=== PATIENT | female | born 1955 | race Caucasian/White ===

== ENCOUNTER 2016-09-06 20:04 | Observation (INO) | payer MEDICAID ==
[2016-09-06 20:06] VITALS: BMI 26.9
--- NOTE | 2016-09-06 20:58 | ED PDOC ---
Arrival/HPI - General Chief Complaint: Headache Time Seen by Provider: 09/06/16 20:25 Historian: Patient - History of Present Illness Narrative History of Present Illness (Text): 09/06/16 20:45 Patient is a 61 year old female whose past medical history includes hypertension and hypercholesterolemia presents to the emergency department with cough, left sided chest pain for past three days. Cough worse with exertion. She also reports left sided headache with photophobia. States she has pain in her left neck as well worse with movement. No known trauma. No fevers. No facial swelling. No pain with eye movements. PMD: Dr. Michael Munguia ([place]) 09/06/16 23:15 Time/Duration: < week Symptom Onset: Gradual Symptom Course: Unchanged Modifying Factors (Text): None Past Medical History - Provider Review Nursing Documentation Reviewed: Yes - Infectious Disease Hx of Infectious Diseases: None - Tetanus Immunization Tetanus Immunization: Unknown - Reproductive Menopause: Yes - Cardiac Hx Cardiac Disorders: Yes Hx Hypertension: Yes - Pulmonary Hx Respiratory Disorders: No Hx Asthma: No Hx Bronchitis: No Hx Chronic Obstructive Pulmonary Disease (COPD): No Hx Emphysema: No Hx Pneumonia: No Hx Respiratory Aspiration: No Hx Respiratory Tract Infection: No Hx Sleep Apnea: No Hx Tuberculosis: No - Neurological Hx Neurological Disorder: No Hx Alzheimer's Disease: No HX Cerebrovascular Accident: No Hx Dementia: No Hx Dizziness: No Hx Meningitis: No Hx Migraine: No Hx Parkinson's Disease: No Hx Seizures: No Hx Transient Ischemic Attacks (TIA): No - HEENT Hx HEENT Disorder: Yes (wears glasses) Hx Blind: No Hx Cataracts: No Hx Deafness: No Hx Difficulty Chewing: No Hx Epistaxis: No Hx Glaucoma: No Hx Macular Degeneration: No - Renal Hx Renal Disorder: No Hx Dialysis: No Hx Kidney Stones: No Hx Neurogenic Bladder: No Hx Pyelonephritis: No Hx Renal Cancer: No Hx Renal Failure: No - Endocrine/Metabolic Hx Endocrine Disorders: No Hx Adrenal Cancer: No Hx Diabetes Insipidus: No Hx Diabetes Mellitus Type 1: No Hx Diabetes Mellitus Type 2: No Hx Hyperthyroidism: No Hx Hypothyroidism: No Hx Systemic Lupus Erythematosus: No - Hematological/Oncological Hx Blood Disorders: No Hx AIDS: No Hx Anemia: No Hx Cancer: No Hx Chemotherapy: No Hx Cirrhosis: No Hx Hemophilia: No Hx Hepatitis A: No Hx Hepatitis B: No Hx Hepatitis C: No Hx Metastasis: No Hx Shingles: No Hx Sickle Cell Disease: No Hx Unexplained Bleeding: No - Integumentary Hx Dermatological Disorder: No Hx Basal Cell Carcinoma: No Hx Eczema: No Hx Melanoma: No Hx Psoriasis: No Hx Squamous Cell Carcinoma: No - Musculoskeletal/Rheumatological Hx Arthritis: Yes Hx Back Pain: Yes - Gastrointestinal Hx Gastroesophageal Reflux: Yes - Genitourinary/Gynecological Hx Genitourinary Disorders: No Hx Hematuria: No Hx Incontinence: No Hx Prostate Problems: No Hx Sexually Transmitted Diseases: No Hx Urinary Tract Infection: No - Psychiatric Hx Psychophysiologic Disorder: No Hx Anxiety: No Hx Bipolar Disorder: No Hx Depression: No Hx Emotional Abuse: No Hx Hallucinations: No Hx Panic Disorder: No Hx Post Traumatic Stress Disorder: No Hx Psychosis: No Hx Physical Abuse: No Hx Schizophrenia: No Hx Sexual Abuse: No Hx Substance Use: No - Surgical History Hx Orthopedic Surgery: Yes (benign tumor removed from back and growth removed from foot.) Other/Comment: R foot surgery - Anesthesia Hx Anesthesia: Yes Hx Anesthesia Reactions: No Hx Malignant Hyperthermia: No - Suicidal Assessment Feels Threatened In Home Enviroment: No Family/Social History - Physician Review Nursing Documentation Reviewed: Yes Family/Social History: Unknown Family HX Smoking Status: Never Smoked Hx Alcohol Use: No Hx Substance Use: No Allergies/Home Meds Allergies/Adverse Reactions: Allergies No Known Allergies Allergy (Verified 09/06/16 20:06) Home Medications: Home Meds Medication Instructions Recorded Confirmed Amlodipine Besylate 10 mg PO DAILY 07/17/13 09/06/16 Aspirin 81 mg PO DAILY 07/17/13 09/06/16 Pantoprazole [Protonix EC Tab] 40 mg PO DAILY 07/17/13 09/06/16 Simvastatin 80 mg PO DAILY 07/17/13 09/06/16 Leflunomide [Arava] 20 mg PO DAILY 12/05/14 09/06/16 Review of Systems - Review of Systems Systems not reviewed;Unavailable: Language Barrier (membership correspondent present) Constitutional: Fevers (Subjective) Eyes: absent: Vision Changes ENT: Sore Throat, Sinus Congestion. absent: Voice Changes, Epistaxis Respiratory: Cough. absent: SOB Cardiovascular: Chest Pain, [place] Gastrointestinal: absent: Abdominal Pain, Nausea, Vomiting Genitourinary Female: absent: Dysuria Musculoskeletal: Back Pain, Neck Pain Skin: absent: Rash Neurological: Headache. absent: Dizziness Endocrine: absent: Diaphoresis Psychiatric: absent: Depression Physical Exam - Physical Exam Narrative Physical Exam (Text): Head: Atraumatic. Normocephalic. No facial droop. No facial edema. Eyes: PERRL. EOMI. Conjunctivae are not pale. No pain with eye movements. ENT: Mucous membranes are moist and intact. Oropharynx is clear and symmetric. No facial edema or erythema. Neck: Supple. Significant midline cervical spine tenderness with left sided muscle spasm. No JVD. No lymphadenopathy. Cardiovascular: Regular rate. Regular rhythm. No murmurs, rubs, or gallops. Distal pulses are 2+ and symmetric. Pulmonary/Chest: No evidence of respiratory distress. Clear to auscultation bilaterally. No wheezing, rales or rhonchi. Abdominal: Soft and non-distended. There is no tenderness. No rebound, guarding, or rigidity. No organomegaly. Good bowel sounds. Back: No CVA tenderness. Extremities: No edema. No cyanosis. No clubbing. Full range of motion in all extremities. No calf tenderness. Skin: Skin is warm and dry. No petechiae. No purpura. Neurological: Alert, awake, and oriented to person, place, time, and situation. Normal speech. Psychiatric: Good eye contact. Normal interaction, affect, and behavior. 09/06/16 23:20 Vital Signs Reviewed: Yes Vital Signs Temp Pulse Resp BP Pulse Ox 09/06/16 22:20 98.1 F 59 L 18 166/96 H 97 09/06/16 20:09 98.2 F 70 18 138/80 98 Temperature: Afebrile Blood Pressure: Normal Pulse: Regular Respiratory Rate: Normal Appearance: Positive for: Non-Toxic, Uncomfortable Pain Distress: Moderate Mental Status: Positive for: Alert and Oriented X 3 Medical Decision Making ED Course and Treatment: Differential Diagnosis included but are not limited to: Torticollis vs cervical radiculopathy vs sinusitis vs. cad Plan: Will obtain CT's of the head and neck, Chest X-ray, and check labs. Progress Notes: Patient with vague chest pain, cannot exclude cad, initial ekg sinus bradycardia , first troponin unremarkable. Patient on exam with palpable neck spasm without fever or trauma. She reports cough and congestion. There is pain with ROM of left shoulder worse with movements. There is localized severe paraspinal tenderness noted. No erythema or edema. Lungs clear. tire setter present. CXR unremarkable. On exam, patient without facial edema, no facial rash, no pain with eye movements, no orbital tenderness. No facial droop. Cranial nerves intact. Suspect radiculoapthy/torticollis. Plan ct head and neck, reassess. Chest pain persistent. Headache and neck pain improved. I reviewed prior imaging studies including brain MRI, prior imaging studies. I feel current headache ? related to neck spasm, cannot exclude migraine or uri component. Will admit to telemetry observation for chest pain with associated risk factors. Also serial exams for intractable headache. Currently afebrile with no focal weakness noted. Last stress test reportedly one year ago. Patient updated with treatment plan, case d/w house doctor accepts admission to hospitalist. 09/06/16 23:24 - Lab Interpretations Lab Results: 09/06/16 21:00 09/06/16 21:00 Lab Results 09/06/16 21:00: Sodium 139, Potassium 3.7, Chloride 104, Carbon Dioxide 26, Anion Gap 13, BUN 15, Creatinine 0.6, Est GFR ( Amer) > 60, Est GFR (Non- Af Amer) > 60, Random Glucose 95, Calcium 9.3, Total Bilirubin 0.6, AST 34, ALT 32, Alkaline Phosphatase 79, Lactate Dehydrogenase 612, Total Creatine Kinase 181, Troponin I < 0.01, NT-Pro-B Natriuret Pep 63.6, Total Protein 7.2, Albumin 4.0, Globulin 3.2, Albumin/Globulin Ratio 1.3 09/06/16 21:00: WBC 7.4 D, RBC 3.98, Hgb 12.1, Hct 36.2, MCV 91.0, MCH 30.4, MCHC 33.4, RDW 13.4, Plt Count 242, MPV 10.0, Gran % 57.7, Lymph % (Auto) 33.1, [place] % (Auto) 6.8 H, Eos % (Auto) 2.0, Baso % (Auto) 0.4, Gran # 4.24, Lymph # 2.4, [place] # 0.5, Eos # 0.2, Baso # 0.03 - RAD Interpretation Radiology Orders: 09/06/16 20:40 HEAD W/O CONTRAST [CT] Stat CHEST ONE VIEW [RAD] Stat 09/06/16 20:41 CERVICAL SPINE W/O CONTRAST [CT] Stat - EKG Interpretation EKG Interpretation (Text): 09/06/16 22:51 EKG sinus bradycardia rate of 56 with minimal voltage criteria for lvh Interpreted by ED Physician: Yes Type: 12 lead EKG - Medication Orders Current Medication Orders: Discontinued Medications Cyclobenzaprine HCl (Flexeril) 10 mg PO STAT STA Stop: 09/06/16 20:42 Last Admin: 09/06/16 21:07 Dose: 10 mg Ketorolac Tromethamine (Toradol) 30 mg IVP ONCE ONE Stop: 09/06/16 20:42 Last Admin: 09/06/16 21:07 Dose: 30 mg - Scribe Statement The provider has reviewed the documentation as recorded by the Veronica Prakash Provider Scribe Attestation: All medical record entries made by the Veronica were at my direction and personally dictated by me. I have reviewed the chart and agree that the record accurately reflects my personal performance of the history, physical exam, medical decision making, and the department course for this patient. I have also personally directed, reviewed, and agree with the discharge instructions and disposition. Disposition/Present on Arrival - Present on Arrival Any Indicators Present on Arrival: No History of DVT/PE: No History of Uncontrolled Diabetes: No Urinary Catheter: No History of Decub. Ulcer: No History Surgical Site Infection Following: None - Disposition Have Diagnosis and Disposition been Completed?: Yes Diagnosis: Chest pain, Cervical radiculopathy, Torticollis, Headache Disposition: HOSPITALIZED Disposition Time: 23:23 Patient Plan: Admission, Observation, Telemetry Patient Problems: Current Active Problems Problem Status Onset Cervical radiculopathy Acute Chest pain Acute Headache Acute Torticollis Acute Discharge Instructions (ExitCare): Chest Pain (ED) Referrals: PCP,NO [Primary Care Provider] - Follow up with primary
[2016-09-06 21:07] LABS: ADD MANUAL DIFF? NO
[2016-09-06 21:16] LABS: BASO # 0.03 K/mm3 (0.0-2.0); BASO % 0.4 % (0.0-3.0); EOS # 0.2 (0.0-0.7); GRAN # 4.24 (1.4-6.5); GRAN % 57.7 % (50.0-68.0); HEMATOCRIT 36.2 % (36.0-48.0); LYMPH # 2.4 (1.2-3.4); LYMPH % 33.1 % (22.0-35.0); MEAN CORPUSCULAR HEMOGLOBIN 30.4 pg (25.0-35.0); MEAN CORPUSCULAR HGB CONC 33.4 g/dl (31.0-37.0); MONO # 0.5 (0.1-0.6); MONO % 6.8 % (1.0-6.0); PLATELET COUNT 242 10^3/uL (120.0-450.0); RED CELL DISTRIBUTION WIDTH 13.4 % (11.5-14.5); WHITE BLOOD COUNT 7.4 10^3/ul (4.5-11.0)
[2016-09-06 21:21] LABS: ALB/GLOB RATIO 1.3 (1.1-1.8); ALKALINE PHOSPHATASE 79 U/L (38-133); ALT/SGPT 32 U/L (7-56); AST/SGOT 34 U/L (15-39); BILIRUBIN,TOTAL 0.6 mg/dL (0.2-1.3); BLOOD UREA NITROGEN 15 mg/dL (7-21); CALCIUM 9.3 mg/dL (8.4-10.5); CARBON DIOXIDE 26 mmol/L (21-33); CHLORIDE 104 mmol/L (98-107); GFR AFRICAN-AMERICAN > 60; GLUCOSE,RANDOM 95 mg/dL (70-110); POTASSIUM 3.7 mmol/L (3.6-5.0); SODIUM 139 mmol/L (132-148); TOTAL PROTEIN 7.2 g/dL (5.8-8.3)
[2016-09-06 21:49] LABS: TROPONIN I < 0.01 ng/mL
--- NOTE | 2016-09-06 22:55 | CT ---
EXAM: CT Cervical Spine Without Intravenous Contrast CLINICAL HISTORY: 61 years old, female; Pain; Headache; Headache not specified; Additional info: Neck pain/headache TECHNIQUE: Axial computed tomography images of the cervical spine without intravenous contrast. This CT exam was performed using one or more of the following dose reduction techniques: automated exposure control, adjustment of the mA and/or kV according to patient size, and/or use of iterative reconstruction technique. Coronal and sagittal reformatted images were created and reviewed. COMPARISON: CR - CERVICAL SPINE >18YR W/OBLIQUE 06/05/2015 12:30:49 PM FINDINGS: Vertebrae: No acute fracture. Alignment: Preservation of the normal curvature of the cervical spine. Discs/spinal canal/neural foramina: No acute findings. Degenerative disease is identified with osteophyte formation, disc space narrowing, and endplate changes. Soft tissues: Symmetric Lung apices: The visualized lung apices are clear. IMPRESSION: Degenerative disease, without acute fracture.
--- NOTE | 2016-09-06 23:11 | CT ---
EXAM: CT Head Without Intravenous Contrast CLINICAL HISTORY: 61 years old, female; Pain; Headache; Headache not specified; Additional info: Left sided headache TECHNIQUE: Axial computed tomography images of the head/brain without intravenous contrast. This CT exam was performed using one or more of the following dose reduction techniques: automated exposure control, adjustment of the mA and/or kV according to patient size, and/or use of iterative reconstruction technique. COMPARISON: CT - HEAD W/O CONTRAST 05/02/2016 10:57:15 AM FINDINGS: Brain: No acute intracranial hemorrhage. Age-appropriate periventricular white matter disease. No edema. Basal ganglia calcifications are present. Ventricles: Age-appropriate ventriculomegaly. Bones: No acute displaced fracture. Sinuses: Unremarkable as visualized. No acute sinusitis. Mastoid air cells: Unremarkable as visualized. No mastoid effusion. IMPRESSION: No acute intracranial hemorrhage, or suspicious mass effect. Basal ganglia mineralization is prominent considering the patient's age. Still, this may be physiologic. Other considerations are prior infection, thyroid/parathyroid disease or inherited metabolic conditions.
[2016-09-06] MEDS ORDERED: Albuterol 0.083% Inhal Sol (2.5 mg/3 mL) UD IH PRN (23:21)
--- NOTE | 2016-09-06 23:33 | CP.PCM.HP ---
<IandaoKelechi cortez - Last Filed: 09/07/16 00:54> History of Present Illness - History of Present Illness History of Present Illness: CC: temporal headache and vision change This is a 60 year old female with past medical history of hypertension, dyslipidemia, rheumatoid arthritis and history of gastritis who is presenting to the ED w/ a 1d history of headache and vision change. She states that she woke up this morning with an extreme headache on her left temporal region, that was associated with dizziness and a change in vision/blurry in nature. She states that this has never happened before. She also states she has had a dry cough for the past 2-3 days, associated with body aches and pains that she is normally used to having with her RA. She states she has no sick contacts, has not traveled recently. has lived in the [place] years now. PMD: Dr. Padilla PMH: hypertension, dyslipidemia, arthritis, history of gastritis PSH: foot surgery Social History: lives with daughter; on disability; denies smoking, drinking or illicit drug use Meds: please refer to [facility] Allergies: Denies Present on Admission - Present on Admission Any Indicators Present on Admission: No History of DVT/PE: No History of Uncontrolled Diabetes: No Urinary Catheter: No Decubitus Ulcer Present: No Past Patient History - Infectious Disease Hx of Infectious Diseases: None - Tetanus Immunizations Tetanus Immunization: Unknown - Past Social History Smoking Status: Never Smoked - CARDIAC Hx Cardiac Disorders: Yes Hx Hypertension: Yes - PULMONARY Hx Respiratory Disorders: No Hx Asthma: No Hx Bronchitis: No Hx Chronic Obstructive Pulmonary Disease (COPD): No Hx Emphysema: No Hx Pneumonia: No Hx Respiratory Aspiration: No Hx Respiratory Tract Infection: No Hx Sleep Apnea: No Hx Tuberculosis: No - NEUROLOGICAL Hx Neurological Disorder: No Hx Alzheimer's Disease: No HX Cerebrovascular Accident: No Hx Dementia: No Hx Dizziness: No Hx Meningitis: No Hx Migraine: No Hx Parkinson's Disease: No Hx Seizures: No Hx Transient Ischemic Attacks (TIA): No - HEENT Hx HEENT Problems: Yes (wears glasses) Hx Blind: No Hx Cataracts: No Hx Deafness: No Hx Difficulty Chewing: No Hx Epistaxis: No Hx Glaucoma: No Hx Macular Degeneration: No - RENAL Hx Chronic Kidney Disease: No Hx Dialysis: No Hx Kidney Stones: No Hx Neurogenic Bladder: No Hx Pyelonephritis: No Hx Renal (Kidney) Cancer: No Hx Renal Failure: No - ENDOCRINE/METABOLIC Hx Endocrine Disorders: No Hx Adrenal Cancer: No Hx Diabetes Insipidus: No Hx Diabetes Mellitus Type 1: No Hx Diabetes Mellitus Type 2: No Hx Hyperthyroidism: No Hx Hypothyroidism: No Hx Systemic Lupus Erythematosus: No - HEMATOLOGICAL/ONCOLOGICAL Hx Blood Disorders: No Hx AIDS: No Hx Anemia: No Hx Cancer: No Hx Chemotherapy: No Hx Cirrhosis: No Hx Hemophilia: No Hx Hepatitis A: No Hx Hepatitis B: No Hx Hepatitis C: No Hx Metastesis: No Hx Shingles: No Hx Sickle Cell Disease: No Hx Unexplained Bleeding: No - INTEGUMENTARY Hx Dermatological Problems: No Hx Basil Cell: No Hx Eczema: No Hx Melanoma: No Hx Psoriasis: No Hx Squamous Cell: No - MUSCULOSKELETAL/RHEUMATOLOGICAL Hx Arthritis: Yes Hx Back Pain: Yes - GASTROINTESTINAL Hx Gastroesophageal Reflux: Yes - GENITOURINARY/GYNECOLOGICAL Hx Genitourinary Disorders: No Hx Hematuria: No Hx Incontinence: No Hx Sexually Transmitted Disorders: No Hx Urinary Tract Infection: No - PSYCHIATRIC Hx Psychophysiologic Disorder: No Hx Anxiety: No Hx Bipolar Disorder: No Hx Depression: No Hx Emotional Abuse: No Hx Hallucinations: No Hx Panic Symptoms: No Hx Post Traumatic Stress Disorder: No Hx Psychosis: No Hx Physical Abuse: No Hx Schizophrenia: No Hx Sexual Abuse: No Hx Substance Use: No - SURGICAL HISTORY Hx Orthopedic Surgery: Yes (benign tumor removed from back and growth removed from foot.) Other/Comment: R foot surgery - ANESTHESIA Hx Anesthesia: Yes Hx Anesthesia Reactions: No Hx Malignant Hyperthermia: No Meds Allergies/Adverse Reactions: Allergies Allergy/AdvReac Type Severity Reaction Status Date / Time No Known Allergies Allergy Verified 09/06/16 20:06 Physical Exam - Constitutional Appears: Non-toxic - Head Exam Head Exam: ATRAUMATIC - Eye Exam Eye Exam: EOMI Additional comments: pain on palpation of the left temporal region - ENT Exam ENT Exam: Mucous Membranes Moist - Neck Exam Neck exam: Positive for: Full Rom. Negative for: Tenderness - Respiratory Exam Respiratory Exam: Clear to Auscultation Bilateral, NORMAL BREATHING PATTERN. absent: Rales, Rhonchi, Wheezes - Cardiovascular Exam Cardiovascular Exam: REGULAR RHYTHM - GI/Abdominal Exam GI & Abdominal Exam: Normal Bowel Sounds, Soft. absent: Tenderness - Rectal Exam Rectal Exam: Deferred - Extremities Exam Extremities exam: Positive for: full ROM. Negative for: calf tenderness - Back Exam Back exam: NORMAL INSPECTION. absent: CVA tenderness (L), CVA tenderness (R) - Neurological Exam Neurological exam: Alert, Oriented x3 - Psychiatric Exam Psychiatric exam: Normal Affect, Normal Mood - Skin Skin Exam: Warm Results - Vital Signs Recent Vital Signs: Last Vital Signs Temp 98.1 F 09/06/16 22:20 Pulse 59 L 09/06/16 22:20 Resp 18 09/06/16 22:20 BP 166/96 H 09/06/16 22:20 Pulse Ox 97 09/06/16 22:20 - Labs Result Diagrams: 09/06/16 21:00 09/06/16 21:00 Labs: Laboratory Results - last 24 hr 09/06/16 09/06/16 21:00 21:00 WBC 7.4 D RBC 3.98 Hgb 12.1 Hct 36.2 MCV 91.0 MCH 30.4 MCHC 33.4 RDW 13.4 Plt Count 242 MPV 10.0 Gran % 57.7 Lymph % (Auto) 33.1 [place] % (Auto) 6.8 H Eos % (Auto) 2.0 Baso % (Auto) 0.4 Gran # 4.24 Lymph # 2.4 [place] # 0.5 Eos # 0.2 Baso # 0.03 Sodium 139 Potassium 3.7 Chloride 104 Carbon Dioxide 26 Anion Gap 13 BUN 15 Creatinine 0.6 Est GFR ( Amer) > 60 Est GFR (Non-Af Amer) > 60 Random Glucose 95 Calcium 9.3 Total Bilirubin 0.6 AST 34 ALT 32 Alkaline Phosphatase 79 Lactate Dehydrogenase 612 Total Creatine Kinase 181 Troponin I < 0.01 NT-Pro-B Natriuret Pep 63.6 Total Protein 7.2 Albumin 4.0 Globulin 3.2 Albumin/Globulin Ratio 1.3 Assessment & Plan - Assessment and Plan (Free Text) Assessment: 61yo F admitted for possible temporal arteritis Possible Temporal Arteritis -PO Prednisone 40mg given in ER -40mg PO daily -consult Dr. Jean Carlos Syed for temporal artery biopsy Chest Pain/Cough -Trend troponins -echo tomorrow -cardiology consult Dr. Hernandez -f/u troponins; initial negative -EKG NSR with no changes -Aspirin, Statin, Beta Darya given -Robitussin w/ codeine; chest x-ray clear; lung sounds clear RA -c/w home meds HLD -c/w home meds HTN -c/w home meds Proph Pepcid Out of bed as tolerated Hep SC Heart Healthy Diet Case discussed with Dr. Moshe Lema PGY1 Night Float Decision To Admit - Pt Status Changed To: Hospital Disposition Of: Inpatient Admission - Admit Certification Admit to Inpatient:: After my assessment, the patient will require hospitalization for at least two midnights. This is because of the severity of symptoms shown, intensity of services needed, and/or the medical risk in this patient being treated as an outpatient. - . Bed Request Type: Telemetry Admitting Physician: Devonte Mesa <Devonte Mesa - Last Filed: 09/07/16 03:42> Results - Vital Signs Recent Vital Signs: Last Vital Signs Temp 98.1 F 09/06/16 22:20 Pulse 61 09/07/16 00:35 Resp 18 09/06/16 22:20 BP 162/88 H 09/07/16 00:35 Pulse Ox 97 09/06/16 22:20 - Labs Result Diagrams: 09/06/16 21:00 09/06/16 21:00 Labs: Laboratory Results - last 24 hr 09/07/16 09/07/16 09/07/16 01:00 01:30 01:30 ESR 10 Urine Opiates Screen Negative Urine Methadone Screen Negative Ur Barbiturates Screen Negative Ur Phencyclidine Scrn Negative Ur Amphetamines Screen Negative U Benzodiazepines Scrn Negative U Oth Cocaine Metabols Negative U Cannabinoids Screen Negative Influenza Typ A,B (EIA) Negative for flu a/b Attending/Attestation - Attestation I have personally seen and examined this patient.: Yes I have fully participated in the care of the patient.: Yes I have reviewed all pertinent clinical information: Yes Notes (Text): 09/07/16 03:31 Patient was seen in the room # 10 in the ER. Staff Kacy Sewell helped for interpreting. Agree with history, physical examination, assessment and plan. 61 year old woman with history of Rheumatoid arthritis,Hypertension, HLD, GERD, spianl surgery for bony tumor in ' , right foot soft tissue benign lump removal, endoscopy and colonoscopy family history of breast cancer- cousin(F),Cervical cancer -Aunt(M), lung cancer-cousin, prostate cancer- maternal grand father, comes in with complaints of left facial pain, left arm pain, chest pain, cough , palpitations of 3 weeks duration.Her PMD is Dr.Jorje Howe in [place].
[2016-09-06] MEDS ORDERED: guaiFENesin-Codeine 100-10mg/5ml Syrup (5 ml) UD PO PRN (23:53)
[2016-09-07 06:54] VITALS: RESP 20; O2SAT 95
--- NOTE | 2016-09-07 09:34 | RAD ---
HISTORY: cough COMPARISON: Chest x-ray performed 04/04/15 TECHNIQUE: Chest, one view. FINDINGS: Examination limited by habitus and hypoinflation. LUNGS: No focal consolidation. Please note that chest x-ray has limited sensitivity for the detection of pulmonary masses. PLEURA: No significant pleural effusion identified. No definite pneumothorax . CARDIOVASCULAR: The cardiomediastinal silhouette appears within normal limits of size. OSSEOUS STRUCTURES: No acute osseous abnormality identified. VISUALIZED UPPER ABDOMEN: Unremarkable. OTHER FINDINGS: None. IMPRESSION: No focal consolidation, significant pleural effusion, or definite pneumothorax identified.
[2016-09-07] MEDS ORDERED: LEFLUNOMIDE 20 MG PO SCH (10:00)
[2016-09-07] MEDS ORDERED: Pantoprazole 40 mg EC Tab PO SCH (10:00)
--- NOTE | 2016-09-07 12:45 | CP.PCM.PN ---
<Tacos Mack - Last Filed: 09/07/16 12:48> Subjective - Date & Time of Evaluation Date of Evaluation: 09/07/16 Time of Evaluation: 12:20 - Subjective Subjective: Pt was seen and examined at bedside. Pt has mild complaints of chest pain that is worse upon deep inhalation and reproducible on palpation. No acute events overnight, as per nursing staff. Pt denied fever, chills, sob, abdominal pains, n/v/d/c. Pt vision is improving as there is less blurriness. Pt also admits to increased frequency of urination. Objective - Vital Signs/Intake and Output Vital Signs (last 24 hours): Temp Pulse Resp BP Pulse Ox 98.2 F 56 L 20 99/60 L 95 09/07/16 12:00 09/07/16 12:00 09/07/16 12:00 09/07/16 12:00 09/07/16 06:00 - Medications Medications: Current Medications Acetaminophen (Tylenol 325mg Tab) 650 mg PO Q6H PRN PRN Reason: Fever >100.4 F Albuterol Sulfate (Albuterol 0.083% Inhal Karen (2.5 Mg/3 Ml) Ud) 2.5 mg IH Q2H PRN PRN Reason: Shortness of Breath Amlodipine Besylate (Norvasc) 10 mg PO DAILY [facility] Last Admin: 09/07/16 10:52 Dose: Not Given Aspirin (Aspirin Chewable) 81 mg PO DAILY [facility] Last Admin: 09/07/16 10:52 Dose: 81 mg Atorvastatin Calcium (Lipitor) 40 mg PO DAILY [facility] Last Admin: 09/07/16 10:51 Dose: 40 mg Cyclobenzaprine HCl (Flexeril) 10 mg PO TID [facility] Last Admin: 09/07/16 10:52 Dose: 10 mg Famotidine (Pepcid) 20 mg PO BID [facility] Last Admin: 09/07/16 10:51 Dose: 20 mg Guaifenesin/Codeine Phosphate (Robitussin W/Codeine) 5 ml PO Q4H PRN PRN Reason: Cough and congestion Heparin Sodium (Porcine) (Heparin) 5,000 units SC Q12H HESHAM PRN Reason: Protocol Last Admin: 09/07/16 10:51 Dose: 5,000 units Ibuprofen (Motrin Tab) 600 mg PO Q6H PRN PRN Reason: Pain, Mild (1-3) Meclizine HCl (Antivert) 25 mg PO TID PRN PRN Reason: Dizziness Non-Formulary Medication (Leflunomide [Arava]) 20 mg PO DAILY [facility] Last Admin: 09/07/16 10:52 Dose: Not Given Ondansetron HCl (Zofran Inj) 8 mg IVP Q8H PRN PRN Reason: Nausea/Vomiting Pantoprazole Sodium (Protonix Ec Tab) 40 mg PO DAILY [facility] Last Admin: 09/07/16 10:52 Dose: 40 mg Tramadol HCl (Ultram) 50 mg PO TID [facility] Last Admin: 09/07/16 10:51 Dose: 50 mg - Constitutional Appears: Non-toxic, No Acute Distress - Head Exam Head Exam: ATRAUMATIC, NORMAL INSPECTION, NORMOCEPHALIC - Eye Exam Eye Exam: EOMI, Normal appearance, PERRL Pupil Exam: NORMAL ACCOMODATION, PERRL - ENT Exam ENT Exam: Mucous Membranes Moist, Normal Exam - Respiratory Exam Respiratory Exam: Clear to Ausculation Bilateral, NORMAL BREATHING PATTERN - Cardiovascular Exam Cardiovascular Exam: REGULAR RHYTHM, +S1, +S2. absent: Murmur - GI/Abdominal Exam GI & Abdominal Exam: Soft, Normal Bowel Sounds. absent: Tenderness - Extremities Exam Extremities Exam: Full ROM, Normal Capillary Refill, Normal Inspection. absent : Joint Swelling, Pedal Edema - Back Exam Back Exam: NORMAL INSPECTION - Neurological Exam Neurological Exam: Alert, Awake, CN II-XII Intact, Normal Gait, Oriented x3 - Psychiatric Exam Psychiatric exam: Normal Affect, Normal Mood - Skin Skin Exam: Dry, Intact, Normal Color, Warm Assessment and Plan - Assessment and Plan (Free Text) Assessment: 61 F admitted for atypical chest pains r/o acs. Atypical chest pain - reproducible on palpation - trend troponins, negative thus far - serial ekgs - Cardio consulted, Dr. Zhao -echo tomorrow Suprapubic tenderness - increased urine frequency - afebrile - no dysuria - ua for possible uti Possible Temporal Arteritis -PO Prednisone 40mg given in ER - ESR wnl Cough -Aspirin, Statin, Beta Darya given -Robitussin w/ codeine; chest x-ray clear; lung sounds clear RA -c/w home meds HLD -c/w home meds HTN -c/w home meds Proph Pepcid Out of bed as tolerated Hep SC Heart Healthy Diet Seen reviewed and discussed with attending <Siria Palacios MD - Last Filed: 09/07/16 16:08> Objective - Vital Signs/Intake and Output Vital Signs (last 24 hours): Temp Pulse Resp BP Pulse Ox 98.2 F 53 L 20 99/60 L 95 09/07/16 12:00 09/07/16 14:00 09/07/16 12:00 09/07/16 12:00 09/07/16 06:00 - Medications Medications: Current Medications Acetaminophen (Tylenol 325mg Tab) 650 mg PO Q6H PRN PRN Reason: Fever >100.4 F Albuterol Sulfate (Albuterol 0.083% Inhal Karen (2.5 Mg/3 Ml) Ud) 2.5 mg IH Q2H PRN PRN Reason: Shortness of Breath Amlodipine Besylate (Norvasc) 10 mg PO DAILY [facility] Last Admin: 09/07/16 10:52 Dose: Not Given Aspirin (Aspirin Chewable) 81 mg PO DAILY [facility] Last Admin: 09/07/16 10:52 Dose: 81 mg Atorvastatin Calcium (Lipitor) 40 mg PO DAILY [facility] Last Admin: 09/07/16 10:51 Dose: 40 mg Cyclobenzaprine HCl (Flexeril) 10 mg PO TID [facility] Last Admin: 09/07/16 14:23 Dose: 10 mg Famotidine (Pepcid) 20 mg PO BID [facility] Last Admin: 09/07/16 10:51 Dose: 20 mg Guaifenesin/Codeine Phosphate (Robitussin W/Codeine) 5 ml PO Q4H PRN PRN Reason: Cough and congestion Heparin Sodium (Porcine) (Heparin) 5,000 units SC Q12H HESHAM PRN Reason: Protocol Last Admin: 09/07/16 10:51 Dose: 5,000 units Ibuprofen (Motrin Tab) 600 mg PO Q6H PRN PRN Reason: Pain, Mild (1-3) Meclizine HCl (Antivert) 25 mg PO TID PRN PRN Reason: Dizziness Non-Formulary Medication (Leflunomide [Arava]) 20 mg PO DAILY [facility] Last Admin: 09/07/16 10:52 Dose: Not Given Ondansetron HCl (Zofran Inj) 8 mg IVP Q8H PRN PRN Reason: Nausea/Vomiting Pantoprazole Sodium (Protonix Ec Tab) 40 mg PO DAILY [facility] Last Admin: 09/07/16 10:52 Dose: 40 mg Tramadol HCl (Ultram) 50 mg PO TID [facility] Last Admin: 09/07/16 14:23 Dose: 50 mg Attending/Attestation - Attestation I have personally seen and examined this patient.: Yes I have fully participated in the care of the patient.: Yes I have reviewed all pertinent clinical information, including history, physical exam and plan: Yes Notes (Text): Patient was seen and examined with medical records auditor .Agreed with resident assessment and plan. 61 yrs old female with PMH of HTN,RA and migrain was admitted with atypical chest pain, serial troponins are normal, EKG is negative for ischemic changes.We will follow up cardiology consult. Patient headache is not due to temporal arteritis, there is no temporal area tenderness, headache has already improved, no visual symptoms today, patient is afebrile.ESR was normal, we will discontinue prednisone and monitor. Management plan was discussed in detail with patient Education was provided.
--- NOTE | 2016-09-07 17:34 | CON ---
DATE: 09/07/2016 REASON FOR CONSULTATION: Chest pain. The patient was obtained via a cmm inspector. HISTORY OF PRESENT ILLNESS: The patient is a 61-year-old female who has a history of hypert ension, hyperlipidemia, and a history of tachycardia According to the patient, she presented because of left-sided chest pain for a few days prior to admission. The patient denies any associated shortn ess of breath or diaphoresis. The patient sustained a fall and left wrist fracture a few weeks ago a nd has a followup appointment with her orthopedist tomorrow. The patient had a cast placed which was removed. SOCIAL HISTORY: Nonsmoker, nondrinker. MEDICATIONS: Albuterol inhaler 2 hours p.r.n., Antivert 25 mg t.i.d., aspirin 81 mg once a day, Flex eril 10 mg t.i.d., heparin 5000 units subcutaneously twice a day, Lipitor 40 mg once a day, Motrin 60 0 mg q. 6 hours p.r.n., Norvasc 10 mg once a day, Protonix 40 mg p.o. once a day, Robitussin with co deine 5 mL q.4 hours p.r.n., Zofran 8 mg intravenously q. 8 hours p.r.n. REVIEW OF SYSTEMS: No fever or chills. No dizziness or syncope, even during the fall and sustaining a left-hand fracture. No history of heart attack in the past and no history of stroke in the past. PHYSICAL EXAMINATION: GENERAL: The patient is a middle-aged female who does not appear to be in any distress. VITAL SIGNS: Blood pressure 99/60, heart rate 56, temperature 98.2, respirations 20. HEENT: Normocephalic. NECK: No JVD. CHEST: Clear. HEART: S1, S2 regular. ABDOMEN: Soft. EXTREMITIES: No edema. LABORATORY DATA: SMA-7: Sodium 139, potassium 3.7, chloride 104, CO2 of 26, glucose 95, BUN 15, cre atinine 0.6. One set of troponin is negative. CBC: WBC 7.4, hemoglobin 12.1, hematocrit 36.2, plat elet count 242,000. Urine drug screen is negative. Influenza AB serology test is negative. EKG rev ealed sinus bradycardia at a rate of 56, minimal voltage criteria for LVH. Cervical spine CT scan sh owed degenerative disease without acute fracture. Head CT scan without contrast: No acute hemorrhag e or suspicious mass. Basal ganglia mineralization prominent considering patient's age. It still may be physiologic. ASSESSMENT: 1. Atypical chest pain, rule out myocardial infarction. 2. History of recent fall and left wrist fracture. 3. Hypertension and hyperlipidemia. RECOMMENDATIONS: Continue aspirin 81 mg once a day, subcutaneous heparin 5000 units twice a day, Lip itor at 40 mg once a day, Norvasc 10 mg once a day. The patient is not a suitable candidate for beta blockers in view of sinus bradycardia. Obtain TSH level, D-dimer, PT and PTT as well as an echocard iogram. Obtain x-ray of the left wrist. Faizan Zhao MD cc: [id number] TT: 09/07/2016 17:33:53 Confirmation # [id number] Dictation # [id number]
[2016-09-07 17:55] VITALS: BP 130/74; TEMP 98.7
[2016-09-07 19:51] VITALS: PULSE 62
--- NOTE | 2016-09-07 22:07 | CARD ---
APPROVED REPORT EKG Measurement Heart [id number] <Conclusion> Sinus bradycardia Minimal voltage criteria for LVH, may be normal variant Borderline ECG
--- NOTE | 2016-09-08 08:11 | CP.PCM.DIS ---
Provider - Provider Date of Admission: 09/06/16 23:25 Attending physician: Joie Casas MD Primary care physician: NO PRIMARY CARE PROVIDER Hospital Course - Lab Results Lab Results: Most Recent Lab Values WBC 7.4 10^3/ul (4.5-11.0) D 09/06/16 21:00 RBC 3.98 10^6/uL (3.5-6.1) 09/06/16 21:00 Hgb 12.1 gm/dL (12.0-16.0) 09/06/16 21:00 Hct 36.2 % (36.0-48.0) 09/06/16 21:00 MCV 91.0 fL (80.0-105.0) 09/06/16 21:00 MCH 30.4 pg (25.0-35.0) 09/06/16 21:00 MCHC 33.4 g/dl (31.0-37.0) 09/06/16 21:00 RDW 13.4 % (11.5-14.5) 09/06/16 21:00 Plt Count 242 10^3/uL (120.0-450.0) 09/06/16 21:00 MPV 10.0 fl (7.0-11.0) 09/06/16 21:00 Gran % 57.7 % (50.0-68.0) 09/06/16 21:00 Lymph % (Auto) 33.1 % (22.0-35.0) 09/06/16 21:00 [place] % (Auto) 6.8 % (1.0-6.0) H 09/06/16 21:00 Eos % (Auto) 2.0 % (1.5-5.0) 09/06/16 21:00 Baso % (Auto) 0.4 % (0.0-3.0) 09/06/16 21:00 Gran # 4.24 (1.4-6.5) 09/06/16 21:00 Lymph # 2.4 (1.2-3.4) 09/06/16 21:00 [place] # 0.5 (0.1-0.6) 09/06/16 21:00 Eos # 0.2 (0.0-0.7) 09/06/16 21:00 Baso # 0.03 K/mm3 (0.0-2.0) 09/06/16 21:00 ESR 10 mm/hr (0.0-20.0) 09/07/16 01:00 Sodium 139 mmol/L (132-148) 09/06/16 21:00 Potassium 3.7 mmol/L (3.6-5.0) 09/06/16 21:00 Chloride 104 mmol/L (98-107) 09/06/16 21:00 Carbon Dioxide 26 mmol/L (21-33) 09/06/16 21:00 Anion Gap 13 (10-20) 09/06/16 21:00 BUN 15 mg/dL (7-21) 09/06/16 21:00 Creatinine 0.6 mg/dL (0.5-1.4) 09/06/16 21:00 Est GFR ( Amer) > 60 09/06/16 21:00 Est GFR (Non-Af Amer) > 60 09/06/16 21:00 Random Glucose 95 mg/dL (70-110) 09/06/16 21:00 Calcium 9.3 mg/dL (8.4-10.5) 09/06/16 21:00 Total Bilirubin 0.6 mg/dL (0.2-1.3) 09/06/16 21:00 AST 34 U/L (15-39) 09/06/16 21:00 ALT 32 U/L (7-56) 09/06/16 21:00 Alkaline Phosphatase 79 U/L (38-133) 09/06/16 21:00 Lactate Dehydrogenase 612 U/L (333-699) 09/06/16 21:00 Total Creatine Kinase 181 U/L (35-230) 09/06/16 21:00 Troponin I < 0.01 ng/mL 09/06/16 21:00 NT-Pro-B Natriuret Pep 63.6 pg/mL (0-450) 09/06/16 21:00 Total Protein 7.2 g/dL (5.8-8.3) 09/06/16 21:00 Albumin 4.0 g/dL (3.0-4.8) 09/06/16 21:00 Globulin 3.2 gm/dL 09/06/16 21:00 Albumin/Globulin Ratio 1.3 (1.1-1.8) 09/06/16 21:00 Lipase 143 U/L (23-300) 09/06/16 23:20 Urine Opiates Screen Negative (NEGATIVE) 09/07/16 01:30 Urine Methadone Screen Negative (NEGATIVE) 09/07/16 01:30 Ur Barbiturates Screen Negative (NEGATIVE) 09/07/16 01:30 Ur Phencyclidine Scrn Negative (NEGATIVE) 09/07/16 01:30 Ur Amphetamines Screen Negative (NEGATIVE) 09/07/16 01:30 U Benzodiazepines Scrn Negative (NEGATIVE) 09/07/16 01:30 U Oth Cocaine Metabols Negative (NEGATIVE) 09/07/16 01:30 U Cannabinoids Screen Negative (NEGATIVE) 09/07/16 01:30 Influenza Typ A,B (EIA) Negative for flu a/b (NEGATIVE) 09/07/16 01:30 Discharge Exam - Head Exam Head Exam: ATRAUMATIC, NORMAL INSPECTION, NORMOCEPHALIC Discharge Plan - Follow Up Plan Condition: GOOD Disposition: AGAINST MEDICAL ADVICE Referrals: PCP,NO [Primary Care Provider] -
== END 2016-09-07 18:15 | disposition left against medical advice (07) ==
LOC: ED 20:04 → ERH 23:25 → 2RNO 09-07 03:10
PROVIDERS: ADMIT Internal Medicine; ATTEND Internal Medicine
DX: M54.12 Radiculopathy, cervical region (principal); M43.6 Torticollis; R51 Headache; I10 Essential (primary) hypertension; E78.00 Pure hypercholesterolemia, unspecified; M06.9 Rheumatoid arthritis, unspecified; E78.5 Hyperlipidemia, unspecified; K29.70 Gastritis, unspecified, without bleeding; K21.9 Gastro-esophageal reflux disease without esophagitis; R07.89 Other chest pain; R00.0 Tachycardia, unspecified; R35.0 Frequency of micturition; Z79.82 Long term (current) use of aspirin
CPT/HCPCS: 70450; 71010; 72125; 80053; 80324; 80345; 80346; 80349; 80353; 80358; 80361; 82550; 83615; 83690; 83880; 83992; 84484; 85025; 85651; 87804; 93005; 96372; 96374; 99285; G0378; J1644; J1885